=== PATIENT | male | born 1960 | race Caucasian/White ===

== ENCOUNTER → 2025-04-25 | Outpatient (CLI) | payer SELFPAY | END | disposition home or self-care (01) | LOC: LABSPEC 15:31 | PROVIDERS: PCP Family Medicine | DX: H92.13 Otorrhea, bilateral (principal) | CPT/HCPCS: 87070; 87075; 87077; 87186; 87205 ==

== ENCOUNTER → 2025-06-06 | Outpatient (CLI) | payer MEDICARE, SELFPAY | END | disposition home or self-care (01) | PROVIDERS: PCP Family Medicine | DX: H92.12 Otorrhea, left ear (principal) | CPT/HCPCS: 87070; 87075; 87077; 87184; 87186; 87205 ==